=== PATIENT | male | born 1960 | race Caucasian/White ===

== ENCOUNTER 2019-08-02 08:04 | Day surgery (SDC) | payer OTHER ==
[2019-07-29 14:28] VITALS: BMI 30.3
[2019-08-02] MEDS ORDERED: PROPOFOL 20 ML ONE ×4 (08:29)
[2019-08-02] MEDS ORDERED: LIDOCAINE HCL/PF 2% SDV 5ML VIAL ONE (08:29)
[2019-08-02 09:35] VITALS: TEMP 98
[2019-08-02 09:55] VITALS: PULSE 59
[2019-08-02 10:07] VITALS: BP 117/72
--- NOTE | 2019-08-05 16:25 | PATH ---
Surgical Pathology Report Patient Name: [address] [facility]. Rec. #: [id number] /Age/Gender: 1960 (Age: 58) / M Account: [id number] [facility] Taken: 08/02/2019 Received: 08/02/2019 Reported: 08/05/2019 Physicians: Dewayne Ascencio M.D. Specimen(s) Received BIOPSY POLYP DISTAL SIGMOID Clinical History Rectal prolapse, diverticulosis, colon, polyp Final Diagnosis DISTAL SIGMOID, POLYP, BIOPSY: HYPERPLASTIC POLYP. Electronically Signed Melissa Blood M.D. Gross Description Received in formalin, labeled "polyp, distal sigmoid" is a marcano, irregular portion of soft tissue measuring 0.2 cm. in greatest dimension. The specimen is submitted in toto in one cassette. AE/08/03/2019 ebram/08/03/2019
== END 2019-08-02 10:07 | disposition home or self-care (01) ==
LOC: FASU-ENDO 08:04
PROVIDERS: ATTEND Internal Medicine Gastroenterology
PROC: 0DBM8ZX Excision of Descending Colon, Via Natural or Artificial Opening Endoscopic, Diagnostic (ICD-10-PCS; principal; 2019-08-02 09:04)
DX: Z12.11 Encounter for screening for malignant neoplasm of colon (principal); K63.5 Polyp of colon; K57.30 Diverticulosis of large intestine without perforation or abscess without bleeding; K62.3 Rectal prolapse